=== PATIENT | male | born 1965 | race Caucasian/White ===

== ENCOUNTER → 2021-07-16 | Outpatient (CLI) | payer BC | LOC: MRI 07-06 08:30 | DX: E29.1 Testicular hypofunction (principal); R79.89 Other specified abnormal findings of blood chemistry; R90.82 White matter disease, unspecified | CPT/HCPCS: 70553; A9577 ==

== ENCOUNTER → 2021-11-19 | Outpatient (CLI) | payer BC | LOC: KOH-I 08:20 | DX: M25.561 Pain in right knee (principal); G89.29 Other chronic pain; M25.461 Effusion, right knee | CPT/HCPCS: 73562 ==